=== PATIENT | male | born 1990 | race Caucasian/White ===

== ENCOUNTER 2024-04-19 10:40 | Emergency (ER) | payer BC ==
[2024-04-19] MEDS: Tetracaine HCl/PF 0.5% 4 ML Bottle EYEBOTH ONE (11:57)
== END 2024-04-19 12:07 | disposition home or self-care (01) ==
LOC: MW.ED 10:40
DX: H10.9 Unspecified conjunctivitis (principal); Z88.0 Allergy status to penicillin; Z79.899 Other long term (current) drug therapy; Z75.8 Other problems related to medical facilities and other health care
CPT/HCPCS: 99283; J3490

== ENCOUNTER 2025-07-11 17:44 | Emergency (ER) | payer BC | END 2025-07-11 19:56 | LOC: MW.ED 17:44 | DX: S02.40FA Zygomatic fracture, left side, initial encounter for closed fracture (principal); Z88.0 Allergy status to penicillin; Z88.8 Allergy status to other drugs, medicaments and biological substances; Y04.0XXA Assault by unarmed brawl or fight, initial encounter; Y93.89 Activity, other specified | CPT/HCPCS: 70450; 70450-26; 70486; 70486-26; 99283; 99284 ==